=== PATIENT | female | born 1985 | race African-American/Black ===

== ENCOUNTER 2017-01-25 00:12 | Emergency (ER) | payer OTHER ==
[~2017-01-25] VITALS: Ht 157.5 cm; Wt 70.3 kg
[~2017-01-25 00:12] MED LIST: ACETAMINOPHEN-1 EAC1; NORCO 5-325 TA1 EACH PO; PENICILLIN V P500 MG; TRINATE TABLET1 TAB
[2017-01-25 00:22] VITALS: BP 123/65
== END 2017-01-25 01:24 | disposition home or self-care (01) ==
LOC: ER 00:12
DX: O26.891 Other specified pregnancy related conditions, first trimester (principal); M54.5 Low back pain; Z90.49 Acquired absence of other specified parts of digestive tract; Z3A.08 8 weeks gestation of pregnancy; V89.2XXA Person injured in unspecified motor-vehicle accident, traffic, initial encounter; Y93.89 Activity, other specified; Y92.89 Other specified places as the place of occurrence of the external cause; Y99.8 Other external cause status

== ENCOUNTER 2017-02-04 02:47 | Emergency (ER) | payer OTHER ==
[~2017-02-04] VITALS: Ht 157.5 cm; Wt 70.3 kg
[2017-02-04] MEDS ORDERED: PREDNISONE 20 M20 MG PO (04:35)
[2017-02-04] MEDS ORDERED: ACETAMINOPHEN-1 EAC1 PO (04:35)
[2017-02-04 06:04] VITALS: BP 112/62
== END 2017-02-04 06:07 | disposition home or self-care (01) ==
LOC: ER 02:47
DX: O20.0 Threatened abortion (principal); M54.42 Lumbago with sciatica, left side; Z90.49 Acquired absence of other specified parts of digestive tract; Z3A.10 10 weeks gestation of pregnancy

== ENCOUNTER 2018-03-13 02:11 | Emergency (ER) | payer OTHER ==
[~2018-03-13] VITALS: Ht 157.5 cm; Wt 68.0 kg
[~2018-03-13 02:11] MED LIST changes: +ACETAMINOPHEN-1 EAC1 PO; +PREDNISONE 20 M20 MG PO
[2018-03-13 02:23] VITALS: BP 127/84
[2018-03-13] MEDS ORDERED: CEPACOL SORETH1 EAC1 PO ×2 (02:53)
[2018-03-14] MEDS ORDERED: MOBIC7.5 MG PO (12:56)
[2018-03-14] MEDS ORDERED: NORFLEX100 MG PO (12:56)
== END 2018-03-13 05:47 | disposition home or self-care (01) ==
LOC: ER 02:11
DX: J02.8 Acute pharyngitis due to other specified organisms (principal); B97.89 Other viral agents as the cause of diseases classified elsewhere; Z90.49 Acquired absence of other specified parts of digestive tract

== ENCOUNTER 2018-03-14 11:36 | Emergency (ER) | payer OTHER ==
[~2018-03-14] VITALS: Ht 157.5 cm; Wt 68.0 kg
[~2018-03-14 11:36] MED LIST changes: +CEPACOL SORETH1 EAC1 PO
[2018-03-14 12:52] LABS: URINE CLARITY CLEAR; URINE COLOR YELLOW; URINE SPECIFIC GRAVITY >= 1.030 (1.005-1.035)
[2018-03-14 12:53] LABS: URINE BILIRUBIN NEGATIVE (Negative); URINE BLOOD NEGATIVE (Negative); URINE GLUCOSE-RANDOM* NEGATIVE (Negative); URINE KETONES NEGATIVE (Negative); URINE LEUKOCYTES-REFLEX NEGATIVE (Negative); URINE NITRITE-REFLEX NEGATIVE (Negative); URINE PROTEIN (DIPSTICK) NEGATIVE (Negative); URINE UROBILINOGEN 0.2 E.U./dl (0.2-1.0)
[2018-03-14] MEDS ORDERED: MOBIC7.5 MG PO (12:56)
[2018-03-14] MEDS ORDERED: NORFLEX100 MG PO (12:56)
[2018-03-14 13:13] VITALS: BP 138/90
== END 2018-03-14 13:13 | disposition home or self-care (01) ==
LOC: ER 11:36
PROVIDERS: Nurse Practitioner Family
DX: S29.012A Strain of muscle and tendon of back wall of thorax, initial encounter (principal); Z90.49 Acquired absence of other specified parts of digestive tract; Z88.5 Allergy status to narcotic agent; X58.XXXA Exposure to other specified factors, initial encounter; Y93.89 Activity, other specified; Y92.89 Other specified places as the place of occurrence of the external cause; Y99.8 Other external cause status

== ENCOUNTER 2018-05-04 15:31 | Emergency (ER) | payer OTHER ==
[~2018-05-04] VITALS: Ht 157.5 cm; Wt 65.8 kg
[~2018-05-04 15:31] MED LIST changes: +MOBIC7.5 MG PO; +NORFLEX100 MG PO
[2018-05-04] MEDS ORDERED: MIRALAX17 GM PO (17:54)
[2018-05-04] MEDS ORDERED: SENNA8.6 MG PO (17:54)
[2018-05-04 19:18] VITALS: BP 143/92
== END 2018-05-04 19:20 | disposition home or self-care (01) ==
LOC: ER 15:31
DX: K59.00 Constipation, unspecified (principal); Z88.8 Allergy status to other drugs, medicaments and biological substances; Z90.49 Acquired absence of other specified parts of digestive tract

== ENCOUNTER 2018-05-29 15:46 | Emergency (ER) | payer OTHER ==
[~2018-05-29] VITALS: Ht 157.5 cm; Wt 65.8 kg
[~2018-05-29 15:46] MED LIST changes: +MIRALAX17 GM PO; +SENNA8.6 MG PO
[2018-05-29] MEDS ORDERED: PREDNISONE 20 M20 M1 PO (17:01)
[2018-05-29 17:15] VITALS: BP 133/87
== END 2018-05-29 19:18 | disposition home or self-care (01) ==
LOC: ER 15:46
DX: J02.8 Acute pharyngitis due to other specified organisms (principal); B97.89 Other viral agents as the cause of diseases classified elsewhere; J04.0 Acute laryngitis; Z88.8 Allergy status to other drugs, medicaments and biological substances; Z90.49 Acquired absence of other specified parts of digestive tract

== ENCOUNTER 2019-12-26 22:11 | Emergency (ER) | payer OTHER ==
[~2019-12-26] VITALS: Ht 157.5 cm; Wt 70.3 kg
[~2019-12-26 22:11] MED LIST changes: +PREDNISONE 20 M20 M1 PO
[2019-12-26 22:57] VITALS: BP 146/89
== END 2019-12-26 22:57 | disposition home or self-care (01) ==
LOC: ER 22:11
DX: R05 Cough (principal); Z79.899 Other long term (current) drug therapy; Z20.828 Contact with and (suspected) exposure to other viral communicable diseases